=== PATIENT | female | born 1995 | race Hispanic/Latino ===

== ENCOUNTER 2018-11-16 10:28 | Emergency (ER) | payer MEDICAID, SELFPAY ==
[2018-11-16] MEDS ORDERED: Metoclopramide HCl 10 MG/2 ML VIAL ONE ×2 (11:42→11:43)
[2018-11-16 11:47] LABS: Bilirubin Negative (Negative); Blood, Urine Negative (Negative); Glucose, Urine (Dipstick) Negative (Negative); Leukocyte Negative (Negative); Nitrite Negative (Negative); Protein, Urine (Dipstick) Negative (Neg-Trace); Specific Gravity, Urine 1.015 (1.005-1.030); Urobilinogen 0.2 mg/dL (0.2-1.0); pH, Urine 6.5 (5.0-9.0)
[2018-11-16 11:48] LABS: Clarity Clear (Clear)
[2018-11-16 11:59] LABS: #Basophils 0.1 thou/uL (0.0-0.2); #Lymphocytes 1.6 thou/uL (1.20-3.40); #Monocytes 0.6 thou/uL (0.11-0.59); #Neutrophils 5.4 thou/uL (1.40-6.50); %Basophils 0.7 % (0.0-1.0); %Eosinophils 0.3 % (0.0-10.0); %Lymphocytes 21.2 % (21.0-51.0); %Monocytes 7.2 % (0.0-10.0); %Neutrophils 70.6 % (42.0-75.0); Mean Corpuscular HGB CONC 34.3 g/dL (32.0-36.0); Mean Corpuscular Hemoglobin 32.7 pg (27.0-31.0); Mean Corpuscular Volume 95.2 fL (78.0-98.0); Mean Platelet Volume 7.1 fL (7.4-10.4); Platelet Count 291 thou/uL (130-400); RBC Distribution Width 11.5 % (11.5-14.5); Red Blood Cell (RBC) Count 3.99 mill/uL (4.20-5.40); White Blood Cell (WBC) Count 7.6 thou/uL (4.8-10.8)
--- NOTE | 2018-11-16 13:52 | ULT ---
PELVIC ULTRASOUND WITH DOPPLER: HISTORY: Pelvic pain. FINDINGS: A single live intrauterine gestation is seen with measurements corresponding to an estimated gestatio nal age of 6 weeks 6 days and CAPRICE at 07/06/2019. The gestational sac diameter measures 2.19 cm and th e crown-rump length measures 0.68 cm. heart rate measures 116 b.p.m. Both ovaries are visuali zed and appear normal with a follicle in the right ovary. Flow is demonstrated to both ovaries. No free fluid is seen. Yolk sac measures 3.3 mm in diameter. IMPRESSION: Single live intrauterine of 6 weeks 6 days estimated gestational age and estimated date of delivery at 07/06/2019. POS: [facility]
== END 2018-11-16 14:25 | disposition home or self-care (01) ==
LOC: ERS 10:28
DX: O99.89 Other specified diseases and conditions complicating pregnancy, childbirth and the puerperium (principal); R10.9 Unspecified abdominal pain; Z3A.01 Less than 8 weeks gestation of pregnancy
CPT/HCPCS: 36415; 76856; 81003; 84702; 85025; 86900; 86901; 96361; 96365; J2765

== ENCOUNTER 2019-03-12 23:06 | Day surgery (SDC) | payer OTHER ==
[2019-03-12 23:50] VITALS: BP 108/60; TEMP 98.5; BMI 33.9
[2019-03-13] MEDS ORDERED: hydrALAZINE 20 MG/ML VIAL SLOW IVP PRN (01:55)
--- NOTE | 2019-03-13 02:32 | PRG ---
DATE OF SERVICE: 03/13/2019 PRIMARY OB: Brittany Hanna MD CHIEF COMPLAINT: Vaginal bleeding. HISTORY OF PRESENT ILLNESS: The patient is a 23-year-old, G1, P0 female with an intrauterine at 23 weeks and 3 days, who is presenting to Labor and Delivery after waking to go to the bathroom and noticing bleeding when she wiped. The patient was concerned as her mother accidentally hit her in the belly with her elbow earlier in the evening before she went to sleep and was worried that the bleeding may represent something harmful to the baby who is occurring. The patient denies any other trauma. Denies fall. Denies fever, headache, chest pain, shortness of breath, nausea, vomiting, diarrhea, constipation, hip problems, knee problems, or muscle weakness. Denies any new rashes. Vaginal bleeding is per HPI. Denies any change in discharge, urinary urgency, or frequency. The patient reports a recent diagnosis of bacterial vaginosis and had finished her antibiotic a couple of weeks ago. PAST MEDICAL HISTORY: Negative. PAST SURGICAL HISTORY: Diaphragmatic hernia repair at 6 months of age. ALLERGIES: NO KNOWN DRUG ALLERGIES. MEDICATIONS: vitamins and Bonjesta for nausea. SOCIAL HISTORY: Denies drug, alcohol, or tobacco use. OB LABS: Unavailable at time of dictation. REVIEW OF SYSTEMS: Per HPI. PHYSICAL EXAMINATION: VITAL SIGNS: Blood pressure is 108/60, heart rate of 79, respiratory rate of 14, saturating 99% on room air, temperature 98.5. GENERAL: She appears to be in no acute distress. She is alert, oriented, cooperative, and pleasant to interact with. HEAD: Normocephalic, atraumatic. LUNGS: Clear to auscultation bilaterally. HEART: Has regular rate and rhythm. ABDOMEN: Gravid, soft, nontender. EXTREMITIES: Nontender, nonedematous. : Vulva is without masses, lesions, or erythema. Immediately noticeable is a curdish discharge in her vestibular region. Inspection of her labia and vestibular region, there is a break in her skin near her urethra on the right side that is likely the cause of her isolated bleeding. On speculum exam, she has significant amount of curd-like discharge in her vaginal canal. Cervix is visibly closed and digitally closed. heart tracing shows Doppler heart tones at the 130s. No contractions noted on the tocometer. S[employer]IOR [employer]GRAM PL[employer]NER III was collected. ASSESSMENT AND PLAN: The patient is a 23-year-old female with an intrauterine at 23 weeks and 3 days, presenting with some isolated bleeding likely with a result of a break in her skin from a topical yeast infection. The patient has been given instructions to use Monistat over the counter including wiping it on her vulva and vestibular region and the patient has been counseled to follow up with her primary OB, Dr. Milad Hanna within a week to verify that the medication has been working appropriately. Fetus has reassuring heart tones for gestational age. Job ID: [id number]
[2019-03-13] MEDS ORDERED: FLU VACC QS2019-20(6MOS UP)/PF 60 MCG/0.5 ML SYRINGE IM ONE (21:00)
== END 2019-03-13 01:45 | disposition home or self-care (01) ==
LOC: L&D/OP 23:06
PROVIDERS: ATTEND Obstetrics & Gynecology
DX: O46.92 Antepartum hemorrhage, unspecified, second trimester (principal); Z3A.23 23 weeks gestation of pregnancy
CPT/HCPCS: 87480; 87510; 87660; 99284

== ENCOUNTER 2019-07-04 11:12 | Inpatient (IN) | payer OTHER ==
[2019-07-04] MEDS ORDERED: Bupivacaine 0.25% HCL 30 ML VIAL ONE (11:38)
[2019-07-04] MEDS ORDERED: EPHEDRINE 25 MG/5 ML SYRINGE ONE (11:38)
[2019-07-04] MEDS ORDERED: Bupivacaine PF 0.5% 30 ML VIAL ONE (11:38)
[2019-07-04] MEDS ORDERED: Lidocaine 1% (PF) 30 ML VIAL SC PRN (18:17)
[2019-07-04] MEDS ORDERED: Docusate 100 MG CAP PO PRN (18:17)
[2019-07-04] MEDS ORDERED: Diphenoxylate HCl/Atropine Tablet PO PRN ×2 (18:17)
[2019-07-04] MEDS ORDERED: NS w/ Oxytocin 10 units 500 ML IV SCH (18:17)
[2019-07-04] MEDS ORDERED: Promethazine HCl 25 MG/ML VIAL IM PRN (18:17)
[2019-07-04] MEDS ORDERED: hydrALAZINE 20 MG/ML VIAL SLOW IVP PRN (18:17)
[2019-07-04] MEDS ORDERED: NS / Oxytocin 40 units/1000ml 1,000 ML IV PRN (18:17)
[2019-07-04] MEDS ORDERED: Butorphanol Tartrate 1 MG/ML VIAL SLOW IVP PRN (18:17)
[2019-07-04] MEDS ORDERED: Zolpidem Tartrate 5 MG TAB PO PRN (18:17)
[2019-07-04] MEDS ORDERED: Misoprostol 200 MCG TAB PR PRN (18:17)
[2019-07-04] MEDS ORDERED: HYDROcodone/Acetaminophen 5/325 mg Tablet PO PRN ×2 (18:17)
[2019-07-04] MEDS ORDERED: Acetaminophen 500 MG TAB PO PRN (18:17)
[2019-07-04 18:35] VITALS: BMI 36.9
[2019-07-04 18:39] LABS: Hemoglobin 12.4 g/dL (12.0-16.0); Mean Corpuscular HGB CONC 33.5 g/dL (32.0-36.0); Mean Corpuscular Hemoglobin 31.4 pg (27.0-31.0); Mean Corpuscular Volume 93.8 fL (78.0-98.0); Mean Platelet Volume 8.9 fL (7.4-10.4); Platelet Count 260 thou/uL (130-400); RBC Distribution Width 12.1 % (11.5-14.5); Red Blood Cell (RBC) Count 3.94 mill/uL (4.20-5.40); White Blood Cell (WBC) Count 7.4 thou/uL (4.8-10.8)
[2019-07-04] MEDS: Misoprostol 100 MCG TAB VAG SCH (18:58)
[2019-07-04] MEDS: Lactated Ringer's 1,000 ML IV SCH ×2 (18:58→19:14)
[2019-07-04] MEDS ORDERED: Penicillin G Potassium 5 MILL.UNITS in Sodium Chloride 0.9% 100 ML IVPB SCH (19:00)
[2019-07-04 19:17] LABS: Syphilis Antibody Nonreactive (Nonreactive); Syphilis Antibody Index 0.05 S/CO (<1.00 Non-Reactive)
[2019-07-04 19:18] LABS: HBSAg Index 0.33 S/CO (0-0.99); Hep B Surf Ag Non-Reactive S/CO (NonReactive)
[2019-07-04] MEDS ORDERED: FLU VACC QS2019-20(6MOS UP)/PF 60 MCG/0.5 ML SYRINGE IM ONE (21:00)
[2019-07-05] MEDS: Misoprostol 100 MCG TAB VAG SCH ×5 (07:50→18:04)
[2019-07-05] MEDS: Penicillin G 2.5 MILL.units 2.5 MILL.UNITS in Premix Bag 1 BAG IVPB SCH ×6 (07:52→23:15)
[2019-07-05] MEDS: Ondansetron PF 4 MG/2 ML Vial IVP PRN ×2 (08:22→19:18)
[2019-07-05] MEDS: Lactated Ringer's 1,000 ML IV SCH ×3 (10:51→16:02)
[2019-07-05] MEDS ORDERED: Fentanyl 4 mcg/Bup 0.1% Cadd 100 ML ONE (12:56)
[2019-07-05] MEDS ORDERED: diphenhydrAMINE 50 MG/ML VIAL IVP PRN (13:44)
[2019-07-05] MEDS ORDERED: Ondansetron PF 4 MG/2 ML Vial IVP PRN (13:44)
[2019-07-05] MEDS ORDERED: Acetaminophen 325 MG TAB PO PRN (13:44)
[2019-07-05] MEDS ORDERED: Lactated Ringer's 500 ML IV PRN (13:44)
[2019-07-05] MEDS ORDERED: Naloxone HCl 0.4 mg/ml Vial IVP PRN ×2 (13:44)
[2019-07-05] MEDS ORDERED: EPHEDRINE 25 MG/5 ML SYRINGE SLOW IVP PRN (13:44)
[2019-07-05] MEDS ORDERED: Promethazine HCl 25 MG/ML VIAL IM PRN (13:44)
[2019-07-05] MEDS ORDERED: Communication Order-Pharmacy FS SCH (13:45)
[2019-07-05] MEDS: NS w/ Oxytocin 10 units 500 ML IV SCH (15:04)
[2019-07-05] MEDS: Dextrose 5%-Lactated Ringers 1,000 ML IV SCH (16:04)
[2019-07-05] MEDS: Fentanyl 4 mcg/Bupivacaine 0.1% Cassette 100 ML EPIDURAL SCH (21:12)
[2019-07-06] MEDS: Ondansetron PF 4 MG/2 ML Vial IVP PRN (01:04)
[2019-07-06] MEDS: Penicillin G 2.5 MILL.units 2.5 MILL.UNITS in Premix Bag 1 BAG IVPB SCH ×3 (04:01→13:06)
[2019-07-06] MEDS: Fentanyl 4 mcg/Bupivacaine 0.1% Cassette 100 ML EPIDURAL SCH (04:02)
[2019-07-06] MEDS: Lactated Ringer's 1,000 ML IV SCH ×3 (07:13→14:46)
[2019-07-06] MEDS: NS w/ Oxytocin 10 units 500 ML IV SCH (07:14)
[2019-07-06] MEDS ORDERED: Azithromycin 500 MG VIAL ONE (09:28)
[2019-07-06] MEDS ORDERED: PHENYLEPHRINE-NS 100 MCG/ML 10 ML SYRINGE ONE (09:56)
[2019-07-06] MEDS ORDERED: EPHEDRINE 25 MG/5 ML SYRINGE ONE (09:56)
[2019-07-06] MEDS ORDERED: MORPHINE 5 MG/10 ML PF VIAL ONE (09:56)
[2019-07-06] MEDS ORDERED: Dexamethasone 4 mg/ml Vial ONE (09:56)
[2019-07-06] MEDS ORDERED: Ketorolac Tromethamine 30 MG/ML VIAL ONE (09:56)
[2019-07-06] MEDS ORDERED: Oxytocin 10 UNITS/ML VIAL ONE ×2 (09:56→11:01)
[2019-07-06] MEDS ORDERED: Ondansetron PF 4 MG/2 ML Vial ONE (10:00)
[2019-07-06] MEDS ORDERED: Azithromycin 500 MG in Sodium Chloride 0.9% 250 ML 250 ML IVPB SCH (10:00)
[2019-07-06] MEDS ORDERED: Midazolam HCl 2 mg/2 ml Vial ONE (10:33)
[2019-07-06] MEDS ORDERED: Ketamine 50 MG/ML (10ML VIAL) ONE (10:33)
[2019-07-06] MEDS ORDERED: Fentanyl 100 MCG/2 ML VIAL ONE (10:33)
[2019-07-06] MEDS ORDERED: Ondansetron PF 4 MG/2 ML Vial IVP PRN ×2 (10:43→12:05)
[2019-07-06] MEDS ORDERED: diphenhydrAMINE 50 MG/ML VIAL IVP PRN (10:43)
[2019-07-06] MEDS ORDERED: L&D-Morphine 4 MG/ML VIAL SLOW IVP PRN (10:43)
[2019-07-06] MEDS ORDERED: Meperidine HCl/PF 25 MG/ML VIAL SLOW IVP PRN (10:43)
[2019-07-06] MEDS ORDERED: Promethazine HCl 25 MG SUPP PR PRN (10:43)
[2019-07-06] MEDS ORDERED: Ondansetron HCl/PF 4 MG/2 ML Vial IVP PRN (10:43)
[2019-07-06] MEDS ORDERED: HYDROmorphone 2 MG/ML VIAL SLOW IVP PRN (10:43)
[2019-07-06] MEDS ORDERED: Naloxone HCl 0.4 mg/ml Vial IV PRN (10:43)
[2019-07-06] MEDS ORDERED: Naloxone HCl 0.4 mg/ml Vial IVP PRN ×2 (10:43)
[2019-07-06] MEDS ORDERED: Promethazine HCl 25 MG/ML VIAL IM PRN (10:43)
[2019-07-06] MEDS ORDERED: Communication Order-Pharmacy FS SCH (10:45)
[2019-07-06] MEDS ORDERED: Misoprostol 200 MCG TAB PR PRN (12:05)
[2019-07-06] MEDS ORDERED: Adacel (T-DAP) 0.5 ML SYRINGE IM ONE (12:05)
[2019-07-06] MEDS ORDERED: Zolpidem Tartrate 5 MG TAB PO PRN (12:05)
[2019-07-06] MEDS ORDERED: Meperidine HCl/PF 25 MG/ML VIAL IM PRN (12:05)
[2019-07-06] MEDS ORDERED: Acetaminophen 325 MG TAB PO PRN (12:05)
[2019-07-06] MEDS ORDERED: HYDROcodone/Acetaminophen 5/325 mg Tablet PO PRN (12:05)
[2019-07-06] MEDS ORDERED: Bisacodyl 10 MG SUPP PR PRN (12:05)
[2019-07-06] MEDS ORDERED: hydrALAZINE 20 MG/ML VIAL SLOW IVP PRN (12:05)
[2019-07-06] MEDS ORDERED: diphenhydrAMINE 25 MG CAP PO PRN (12:05)
[2019-07-06] MEDS ORDERED: Lanolin Ointment 7 GM TUBE TOP PRN (12:05)
[2019-07-06] MEDS ORDERED: NS / Oxytocin 40 units/1000ml 1,000 ML IV SCH (12:15)
[2019-07-06] MEDS: Misoprostol 100 MCG TAB VAG SCH ×3 (13:02→13:04)
[2019-07-06] MEDS: Dextrose 5%-Lactated Ringers 1,000 ML IV SCH (13:05)
[2019-07-06] MEDS ORDERED: CEFAZOLIN 2 GM in Premix Bag 1 BAG IVPB SCH (14:00)
[2019-07-06] MEDS: Ibuprofen 800 MG TAB PO SCH ×2 (14:46→23:11)
[2019-07-06] MEDS: Misoprostol 200 MCG TAB PO SCH ×2 (15:00→17:03)
[2019-07-06] MEDS: Ketorolac Tromethamine 30 MG/ML VIAL IVP PRN ×2 (17:17→23:07)
[2019-07-06] MEDS: Simethicone Chewable 80 MG TAB PO PRN (17:20)
[2019-07-06] MEDS: Docusate Calcium (SURFAK) 240 MG CAP PO SCH (23:10)
[2019-07-06] MEDS: Ferrous Sulfate 325 MG TAB PO SCH (23:11)
[2019-07-07] MEDS: Ketorolac Tromethamine 30 MG/ML VIAL IVP PRN (04:57)
[2019-07-07] MEDS: Lactated Ringer's 1,000 ML IV SCH ×3 (04:58→13:54)
[2019-07-07 05:06] LABS: Hemoglobin 8.6 g/dL (12.0-16.0); Mean Corpuscular HGB CONC 35.2 g/dL (32.0-36.0); Mean Corpuscular Hemoglobin 34.4 pg (27.0-31.0); Mean Corpuscular Volume 97.7 fL (78.0-98.0); Mean Platelet Volume 8.6 fL (7.4-10.4); Platelet Count 152 thou/uL (130-400); RBC Distribution Width 12.5 % (11.5-14.5); Red Blood Cell (RBC) Count 2.51 mill/uL (4.20-5.40); White Blood Cell (WBC) Count 14.3 thou/uL (4.8-10.8)
[2019-07-07] MEDS ORDERED: FLU VACC QS2019-20(6MOS UP)/PF 60 MCG/0.5 ML SYRINGE IM ONE (09:00)
[2019-07-07] MEDS: Ibuprofen 800 MG TAB PO SCH ×3 (09:07→22:17)
[2019-07-07] MEDS: Docusate Calcium (SURFAK) 240 MG CAP PO SCH ×2 (09:09→22:18)
[2019-07-07] MEDS: Prenatal Vitamin 1 TAB PO SCH (09:09)
[2019-07-07] MEDS: Ferrous Sulfate 325 MG TAB PO SCH ×2 (09:09→22:17)
[2019-07-07] MEDS: HYDROcodone/Acetaminophen 5/325 mg Tablet PO PRN ×2 (09:10→13:55)
[2019-07-07] MEDS: Simethicone Chewable 80 MG TAB PO PRN ×2 (09:10→13:55)
[2019-07-08] MEDS: Ibuprofen 800 MG TAB PO SCH (05:24)
[2019-07-08 07:46] VITALS: BP 122/71; TEMP 98.8
[2019-07-08] MEDS: Lactated Ringer's 1,000 ML IV SCH ×2 (07:56→11:24)
[2019-07-08] MEDS: Docusate Calcium (SURFAK) 240 MG CAP PO SCH (07:57)
[2019-07-08] MEDS: Ferrous Sulfate 325 MG TAB PO SCH (07:57)
[2019-07-08] MEDS: Prenatal Vitamin 1 TAB PO SCH (07:57)
--- NOTE | 2019-07-08 12:15 | OP ---
DATE OF PROCEDURE: 07/06/2019 Surgeon: Enrrique Hanna MD PLATE COLORER SURGEON: Amy Davila MD PREOPERATIVE DIAGNOSES: 1. Term intrauterine at 40 weeks. 2. Failed induction. 3. Arrest of descent and dilatation. 4. Transverse arrest. POSTOPERATIVE DIAGNOSES: 1. Term intrauterine at 40 weeks. 2. Failed induction. 3. Arrest of descent and dilatation. 4. Transverse arrest. 5. Cephalopelvic disproportion. PROCEDURE PERFORMED: Primary low-transverse section. ANESTHESIA: Epidural catheterization. FINDINGS: 1. Arrest of descent and dilatation at 6 cm dilation, complete effacement, and 0 station. 2. Thick meconium stained amniotic fluid. 3. Vigorous male , 7 pounds 1 ounce, Apgars 9 and 9. 4. Normal uterus, tubes, and ovaries. COMPLICATIONS: None. BLOOD LOSS: Blood loss would be approximately 800 mL and then (QBL equal 1021 mL). HISTORY AND INDICATIONS: Ms. Malika Wilkinson is a very pleasant 24-year-old female G1, P0, followed my clinic for obstetric care. Malika was admitted to Labor and Delivery on the evening of 07/04/2019 for induction of labor. She was given one dose of Cytotec, but did not qualify for further doses by nursing report. Pitocin induction was started early that morning. AROM was performed early on the morning of 07/05/2019 and internal monitors were placed. Pitocin induction was carried out through that day and into the morning of 07/06/2019. The patient continued to make slow cervical change despite very minimal descent over a 12 hour interval. Early on the morning of 07/06/2019, it was noted that there was thick meconium-stained amniotic fluid. The patient had gone through a long drawn out induction and was ready to proceed with a . She had her epidural was placed and was getting uncomfortable again that morning. There were intermittent bouts where it was difficult to monitor the baby and there were some periodic changes noted. Decision was made to proceed with primary low- transverse section secondary to transverse arrest of descent and dilatation, as well as potential distress secondary to meconium-stained amniotic fluid. Anesthesia was notified in a timely fashion. The patient and her family were counseled and surgical disclosures were signed and placed in the chart. Questions were answered to their satisfaction. DESCRIPTION OF PROCEDURE: After consent and counseling, Ms. Wilkinson was taken to the operating room. Adequate anesthesia was obtained via the existing epidural catheterization. A March had previously been placed in the bladder, which was noted to be draining clear urine. Attention was then turned to performing the primary low-transverse section. A Pfannenstiel incision was made, carried sharply to the fascia, which was also sharply incised. The midline was identified. The rectus muscles were retracted laterally. The abdominal peritoneal cavity was entered with usual safeguard carried out. A retractor was placed and a bladder flap was created on the vesicouterine peritoneum. A bladder blade was then placed. A low-transverse incision was made on the well-developed lower uterine segment. Brisk bleeding was then noted. Upon entering the amniotic sac, a moderate amount of thick amniotic fluid was appreciated. Head was delivered and baby was extensively suctioned on the abdomen. Shoulders and body were then delivered in atraumatic fashion. The baby was not stimulated on the abdomen. The cord was doubly clamped and cut. The infant was handed to the pediatric team in attendance for the delivery. The infant was a vigorous viable male weighing 7 pounds 1 ounce with Apgars of 9 and 9 obtained at 1 and 5 minutes respectively. Cord blood gases were obtained. The placenta was manually removed from the uterus. The placenta was sent to Pathology secondary to thick meconium fluid. The uterine cavity was cleared of clot and fluid. The low-transverse incision was closed with a running locking ligature of #1 chromic. A second imbricating layer was placed to facilitate strength and hemostasis. The vesicouterine peritoneum was reapproximated to the lower segment with running ligature of 2-0 Monocryl suture. The posterior cul-de-sac and gutters were cleared of clot and fluid. The pelvis was carefully inspected secondary to failed induction with transverse arrest of descent. The baby was noted to have significant caput and molding at the time of delivery. The pelvis was inspected and the sacrum was noted to be extremely prominent posteriorly. There was a very short anterior- posterior diameter secondary to the prominent sacrum and an android pelvis. The patient's pelvic outlet was also noted to be contracted during cervical checks while in labor. Therefore, a diagnosis of cephalopelvic disproportion was made. Seprafilm was applied to the low-transverse incision and the anterior aspect of the uterus. Otherwise, the uterus, fallopian tubes, and ovaries were completely normal. No pathology was identified. The uterus was returned to the abdomen after good tone was noted. The patient was extremely hypotonic during closure. The uterus was observed until good tone was appreciated. The patient was given Methergine intraoperatively and Cytotec postoperatively to help with hemostasis. Lap, sponge, and needle counts were correct after the uterus was returned to the abdomen. The peritoneum was closed in a running ligature of 2-0 Vicryl. The rectus muscles were reapproximated in the midline with interrupted ligatures of 2-0 Vicryl. The fascia was then closed with 2 ligatures of 0 Vicryl suture, which were tied in the midline. Good fascial integrity was noted. The incision was irrigated with copious amount of warm normal saline. The subcutaneous tissue was closed with interrupted ligatures of 2-0 plain. The skin was closed with subcuticular stitch of 4-0 Monocryl and dressed with Dermabond. Lap, sponge, and needle counts were correct x3. Estimated blood loss during the surgical procedure was approximately 800 mL. The nurses noted postoperatively that there were multiple large clots expressed from the uterus as the patient was going to the recovery room. QBL was approximately 1021 mL. The patient was taken to recovery room in good condition. Immediately following surgery, the patient and family were made aware of the surgical procedure and operative findings. Questions were answered to their satisfaction. We discussed in detail the findings of cephalopelvic disproportion and the implications to future deliveries. The patient and the father of the baby were appreciative of the care rendered here at [facility] this morning. Job ID: [id number] [facility]
== END 2019-07-08 14:00 | disposition home or self-care (01) | DRG 787 ==
LOC: L&D 17:49 → 3SW 07-06 14:09 → EDSTATUS 07-07 11:11
PROVIDERS: ADMIT Obstetrics & Gynecology; ATTEND Obstetrics & Gynecology
PROC: 10D00Z1 Extraction of Products of Conception, Low, Open Approach (ICD-10-PCS; principal; 2019-07-06)
DX: O33.9 Maternal care for disproportion, unspecified (principal); D62 Acute posthemorrhagic anemia; O72.1 Other immediate postpartum hemorrhage; Z3A.40 40 weeks gestation of pregnancy; Z37.0 Single live birth; O62.1 Secondary uterine inertia; O99.824 Streptococcus B carrier state complicating childbirth; O90.81 Anemia of the puerperium
CPT/HCPCS: 36415; 51702; 85027; 86780; 86850; 86900; 86901; 87340; 88307; 99285; J0456; J0690; J1100; J1885; J2250; J2274; J2405; J2540; J2590; J3010; J3490; Q0163; S0020

== ENCOUNTER 2021-01-23 12:15 | Emergency (ER) | payer OTHER ==
[2021-01-24 09:54] LABS: SARS-CoV-2 PCR by NAA Not Detected (NotDetected)
== END 2021-01-23 12:55 | disposition home or self-care (01) ==
LOC: ERS 12:15
DX: R05 Cough (principal); R06.02 Shortness of breath; M79.10 Myalgia, unspecified site; Z20.822 Contact with and (suspected) exposure to COVID-19
CPT/HCPCS: 99283; U0003; U0005